=== PATIENT | female | born 1965 | race Caucasian/White ===

== ENCOUNTER 2016-09-22 09:09 | Emergency (ER) | payer BC ==
[2016-09-22 09:24] VITALS: BP 140/75
--- NOTE | 2016-09-22 09:59 | UC ---
UC General HPI - HPI Summary HPI Summary: 2 WEEKS OF FEELING LIGHTHEADED/DIZZY WITH BLURRY VISION. ALSO HAS INTERMITTENT SHARP EPIGASTRIC/CHEST PAIN RELIEVED WITH ANTACIDS. ARMS FEEL NUMB/TINGLY AT TIMES. NO MARTINEZ, FEVER, NAUSEA. ALSO C/O FEELING OF GLOBUS SENSATION. FEELS LIKEL FOOD IS STICKING IN THROAT. NO PROBLEM WITH LIQUIDS. SX STARTED WHILE ON A CRUISE. DIZZINESS IS WORSE WITH POSITION CHANGE AND RAPID HEAD MVMT. HAS NECK PAIN. - History of Current Complaint Chief Complaint: UCGeneralIllness Stated Complaint: DIZZY Time Seen by Provider: 09/22/16 09:25 Hx Obtained From: Patient, Family/Mushroom Cutter - Onset/Duration: Gradual Onset, Lasting Weeks, Still Present Timing: Constant Onset Severity: Moderate Current Severity: Moderate Pain Intensity: 5 Associated Signs & Symptoms: Positive: Back Pain, Chest Pain, Dizziness, Weakness. Negative: Fever, Headache, Nausea, Recent Medication Changes, SOB, Vomiting - Allergy/Home Medications Allergies/Adverse Reactions: Allergies Allergy/AdvReac Type Severity Reaction Status Date / Time Amoxicillin Allergy Rash Verified 10/24/15 16:11 Clavulanic Acid Allergy Rash Verified 10/24/15 16:11 [From Augmentin] Ibuprofen Allergy Hives Verified 10/24/15 16:11 DAIRY PRODUCTS Allergy SENSITIVITY Uncoded 10/24/15 16:12 WHEAT Allergy SENSITIVITY Uncoded 10/24/15 16:13 PMH/Surg Hx/FS Hx/Imm Hx - Additional Past Medical History Additional PMH: VERTIGO, REFLUX Endocrine History Of: Denies: Diabetes Cardiovascular History Of: Denies: Hypertension, Pacemaker/ICD GI/ History Of: Denies: Renal Disease Cancer History Of: Denies: Breast Cancer - Surgical History Surgical History: Yes Surgery Procedure, Year, and Place: C SECTION,. CYST REMOVED FROM BRIDGE OF NOSE. minh 2007. LAPOROSCOPY - ENDOMETRIOSIS - Family History Known Family History: Positive: Cardiac Disease - BOTH PARENTS - Social History Alcohol Use: Rare Substance Use Type: None Smoking Status (MU): Never Smoked Tobacco Have You Smoked in the Last Year: No Review of Systems Constitutional: Other - DIZZY Skin: Negative Eyes: Blurred Vision ENT: Negative Respiratory: Negative Cardiovascular: Negative Gastrointestinal: Abdominal Pain Musculoskeletal: Myalgia Neurological: Paresthesia All Other Systems Reviewed And Are Negative: Yes Physical Exam Triage Information Reviewed: Yes Appearance: Well-Appearing, No Pain Distress, Well-Nourished Vital Signs: Initial Vital Signs Temp 98.8 F 09/22/16 09:17 Pulse 75 09/22/16 09:17 Resp 16 09/22/16 09:17 BP 140/75 09/22/16 09:17 Pulse Ox 100 09/22/16 09:17 Vital Signs Reviewed: Yes Eyes: Positive: Conjunctiva Clear ENT: Positive: Hearing grossly normal, Pharynx normal, TMs normal Neck: Positive: Supple, Nontender, No Lymphadenopathy Respiratory Exam: Normal Cardiovascular Exam: Normal Abdomen Description: Positive: Nontender, Soft. Negative: CVA Tenderness (R), CVA Tenderness (L), Distended, Guarding Musculoskeletal: Positive: No Edema Neurological: Positive: Alert, Other: - CN II-XII GROSSLY INTACT BILATERALLY. NEG PRONATOR DRIFT. NEGATIVE ROMBERG. FINGER TO NOSE INTACT BILATERALLY. HEEL TO NAYAK INTACT BILATERALLY. RAPID ALTERNATING MVMTS INTACT. 5/5 STRENGTH Psychological: Positive: Age Appropriate Behavior Skin: Negative: rashes Course/Dx - Course Course Of Treatment: DISCUSSED ER EVALUATION VS PCP FOLLOW-UP. PT HAS HAD SX FOR ABOUT 2 WEEKS THAT ARE STABLE. NO CLEAR PATTERN SUGGESTING ACUTE CONDITION REQUIRING URGENT WORK-UP. PT PREFERS TO FOLLOW-UP WITH PCP. ADVISED TO GO TO ER WITHOUT FAIL IF SX CHANGE OR WORSEN. - Differential Dx - Multi-Symptom Provider Diagnoses: VERTIGO/BPPV Discharge - Discharge Plan Condition: Stable Disposition: HOME Prescriptions: Meclizine HCl [Meclizine 25] 25 mg PO TID PRN #30 tab PRN Reason: Dizziness Patient Education Materials: Vertigo (ED), Benign Paroxysmal Positional Vertigo (ED) Referrals: Micheal Aguilera MD [Primary Care Provider] - As Soon As Possible Additional Instructions: Benign paroxysmal positional vertigo (BPPV) - sometimes called benign positional vertigo, positional vertigo, postural vertigo, or simply vertigo, is probably the most commonly recognized cause of vertigo. It is most commonly attributed to calcium debris within the posterior semicircular canal (inner ear) , known as canalithiasis. Classically, patients describe a brief spinning sensation brought on when turning in bed or tilting the head backward to look up. The dizziness is quite brief, usually seconds, but less commonly it can last minutes. It may be severe enough to halt activity for this duration. Patients may experience nausea but rarely vomit. Ear pain, hearing loss, and tinnitus are absent. The diagnosis of BPPV is suggested by its historical description and confirmed by [place]-Hallpike maneuver. The natural history of BPPV is one of repeated, brief vertiginous episodes that are predictably provoked. BPPV can be treated by canalith repositioning maneuvers. HANDOUTS FOR CANALITH REPOSITIONING MANEUVERS PROVIDED. TAKE MECLIZINE NEEDED FOR SYMPTOM CONTROL. FOLLOW-UP WITH YOUR PCP FOR FURTHER WORKUP OF YOUR SYMPTOMS. GO TO THE ER WITHOUT FAIL IF YOU FEEL WORSE OR DEVELOP CHEST PAIN, SHORTNESS OF BREATH, NAUSEA OR ANY OTHER CONCERNING SYMPTOMS.
== END 2016-09-22 10:15 | disposition home or self-care (01) ==
LOC: UCEAST 09:09
DX: H81.10 Benign paroxysmal vertigo, unspecified ear (principal); F45.8 Other somatoform disorders; H53.8 Other visual disturbances; Z88.6 Allergy status to analgesic agent; Z88.1 Allergy status to other antibiotic agents; Z88.0 Allergy status to penicillin
CPT/HCPCS: 99212; G0463

== ENCOUNTER 2019-01-20 07:18 | Emergency (ER) | payer BC ==
[2019-01-20 07:27] VITALS: BP 127/82
--- NOTE | 2019-01-20 07:47 | UC ---
Lower Extremity/Ankle HPI - HPI Summary HPI Summary: FELL ONE WEEK AGO AND SUSTAINED AN INVERSION INJURY TO HER LEFT FOOT/ANKLE. PAIN HAS BEEN IMPROVING AND SHE IS ABLE TO WEIGHT-BEAR BUT YESTERDAY SHE DEVELOPED SOME TINGLING/NUMBNESS IN HER TOES. - History of Current Complaint Chief Complaint: UCLowerExtremity Stated Complaint: FOOT COMPLAINT Time Seen by Provider: 01/20/19 07:32 Hx Obtained From: Patient Hx Last Menstrual Period: 11/11/14 Onset/Duration: Sudden Onset, Lasting Days, Still Present Severity Initially: Moderate Severity Currently: Moderate Pain Intensity: 7 Pain Scale Used: 0-10 Numeric Aggravating Factor(s): Standing, Ambulation Alleviating Factor(s): Rest, Elevation Able to Bear Weight: Yes - Allergies/Home Medications Allergies/Adverse Reactions: Allergies Allergy/AdvReac Type Severity Reaction Status Date / Time amoxicillin Allergy Rash Verified 01/20/19 07:29 clavulanic acid Allergy Rash Verified 01/20/19 07:28 [From Augmentin] ibuprofen Allergy Hives Verified 01/20/19 07:28 DAIRY PRODUCTS Allergy SENSITIVITY Uncoded 01/20/19 07:28 WHEAT Allergy SENSITIVITY Uncoded 01/20/19 07:28 Home Medications: Home Medications Multivitamins/Minerals TAB* [Theragran/minerals TAB*] 1 tab PO DAILY 01/20/19 [ History Confirmed 01/20/19] PMH/Surg Hx/FS Hx/Imm Hx Previously Healthy: Yes - Surgical History Surgical History: Yes Surgery Procedure, Year, and Place: C SECTION,. CYST REMOVED FROM BRIDGE OF NOSE. minh 2007. LAPOROSCOPY - ENDOMETRIOSIS - Family History Known Family History: Positive: Cardiac Disease - BOTH PARENTS - Social History Alcohol Use: Occasionally Substance Use Type: None Smoking Status (MU): Former Smoker Have You Smoked in the Last Year: No When Did the Patient Quit Smoking/Using Tobacco: 30 years ago Review of Systems All Other Systems Reviewed And Are Negative: Yes Constitutional: Positive: Negative Skin: Positive: Negative Respiratory: Positive: Negative Cardiovascular: Positive: Negative Gastrointestinal: Positive: Negative Musculoskeletal: Positive: Arthralgia, Edema Physical Exam Triage Information Reviewed: Yes Appearance: Well-Appearing, No Pain Distress, Well-Nourished Vital Signs: Initial Vital Signs Temp 98.3 F 01/20/19 07:23 Pulse 71 05/24/19 07:23 Resp 16 01/20/19 07:23 BP 127/82 01/20/19 07:23 Pulse Ox 100 01/20/19 07:23 Vital Signs Reviewed: Yes Eyes: Positive: Conjunctiva Clear ENT: Positive: Hearing grossly normal Neck: Positive: Supple Respiratory: Positive: No respiratory distress, No accessory muscle use Cardiovascular: Positive: Pulses Normal Abdomen Description: Positive: Soft Musculoskeletal: Positive: ROM Intact, Edema @ - LEFT LATERAL FOOT/ANKLE, Other : - TTO LEFT FOOT LATERAL MALLEOLUS, 5TH METATARSAL, BRIDGE OF FOOT. DP PULSES 2 +. FOOT/TOES PINK AND WARM. Neurological: Positive: Alert Psychological: Positive: Age Appropriate Behavior Skin: Negative: Rashes Diagnostics - Radiology LEFT FOOT/ANKLE XRAY Radiology Interpretation Completed By: Radiologist Summary of Radiographic Findings: Tiny bony fragment distal to the fibula may represent tiny avulsion. Soft tissue swelling is noted laterally. Lower Extremity Course/Dx - Differential Dx/Diagnosis Provider Diagnosis: Closed avulsion fracture of distal end of left fibula, Paresthesia of left foot Discharge - Sign-Out/Discharge Documenting (check all that apply): Patient Departure All imaging exams completed and their final reports reviewed: Yes - Discharge Plan Condition: Stable Disposition: HOME Patient Education Materials: Paresthesia (ED), Avulsion Fracture (ED) Referrals: Nii Shetty MD [Medical Doctor] - 1 Week Micheal Aguilera MD [Primary Care Provider] - If Needed Additional Instructions: X-RAY TODAY SHOWS A TINY BONY FRAGMENT DISTAL TO THE FIBULA WHICH MAY REPRESENT A TINY AVULSION FRACTURE. CONTINUE TO REST, ICE, COMPRESS AND ELEVATE YOUR LEG. CALL ORTHOPEDICS TODAY TO SCHEDULE FOLLOW-UP APPOINTMENT FOR NEXT WEEK. THE NUMBNESS/TINGLING YOU'RE EXPERIENCING IN YOUR TOES MAY BE DUE TO SWELLING FROM YOUR INJURY. HOPEFULLY YOUR INJURY HEALS THESE SYMPTOMS WILL ALSO IMPROVE. AGAIN I WOULD DISCUSS THIS WITH ORTHOPEDICS. YOU MAY BENEFIT FROM [facility]. - Billing Disposition and Condition Condition: STABLE Disposition: Home
== END 2019-01-20 08:58 | disposition home or self-care (01) ==
LOC: UCEAST 07:18
DX: S82.832A Other fracture of upper and lower end of left fibula, initial encounter for closed fracture (principal); R20.2 Paresthesia of skin; Z88.0 Allergy status to penicillin; Z88.8 Allergy status to other drugs, medicaments and biological substances; Z91.018 Allergy to other foods; Y92.9 Unspecified place or not applicable; Z91.011 Allergy to milk products; X50.0XXA Overexertion from strenuous movement or load, initial encounter; Z87.891 Personal history of nicotine dependence
CPT/HCPCS: 99211; G0463